=== PATIENT | male | born 1985 | race Native Hawaiian/Other Pacific Islander ===

== ENCOUNTER 2017-04-04 01:41 | Emergency (ER) | payer SELFPAY ==
[2017-04-04 02:26] LABS: Basophils % (Auto) 0.7 % (0.0-1.8); Eosinophils % (Auto) 13.7 % (0.0-4.3); Hematocrit 45.3 % (35.5-45.6); Hemoglobin 15.5 gm/dl (11.8-15.2); Mean Corpuscular HGB Conc 34 % (32-34); Mean Corpuscular Hemoglobin 30 pg (28-32); Mean Corpuscular Volume 86 fl (84-94); Platelet Count 233 K/mm3 (140-440); Red Blood Count 5.25 M/mm3 (3.65-5.03); Red Cell Distribution Width 13.4 % (13.2-15.2); White Blood Count 10.1 K/mm3 (4.5-11.0)
[2017-04-04 02:36] LABS: Alanine Aminotransferase 25 units/L (7-56); Albumin 4.4 g/dL (3.9-5); Albumin/Globulin Ratio 1.6 %; Alkaline Phosphatase 85 units/L (35-129); Anion Gap 21 mmol/L; Blood Urea Nitrogen 16 mg/dL (9-20); Carbon Dioxide 20 mmol/L (22-30); Chloride 100.4 mmol/L (98-107); Glucose 127 mg/dL (75-100); Lipase 32 units/L (13-60); Potassium 3.6 mmol/L (3.6-5.0); Sodium 138 mmol/L (137-145); Total Protein 7.1 g/dL (6.3-8.2)
[2017-04-04 03:50] LABS: Bilirubin,Urine NEG (Negative); Blood,Urine NEG (Negative); Ketones,Urine NEG (Negative); Leukocyte Esterase,Urine NEG (Negative); Mucus,Urine FEW /HPF; Nitrite,Urine NEG (Negative); Protein,Urine <15 mg/dL mg/dL (Negative); Urobilinogen,Urine < 2.0 mg/dL (<2.0)
[2017-04-04] MEDS ORDERED: DELTASONE PO ONE (08:42)
[2017-04-04] MEDS ORDERED: ATROVENT IH ONE ×2 (08:42→09:33)
[2017-04-04] MEDS ORDERED: PROVENTIL IH ONE ×2 (08:42→09:33)
--- NOTE | 2017-04-04 08:51 | Emergency Department Report ---
HPI - General Chief Complaint: Upper Respiratory Infection Time Seen by Provider: 04/04/17 08:25 - HPI HPI: This is a 31-year-old male presents the emergency department with a one -month history of a mixed dry and productive cough. The patient has been trying Robitussin and Mucinex without any relief. Started today he had some shortness of breath with some nausea and vomiting. He has some chest wall discomfort when he coughs. There is been some recent chills but no fever as he has not checked his temperature. He does not have a primary care doctor. No past medical history. He is an occasional tobacco smoker. No recent travel or sick contacts at home. ED Past Medical Hx - Past Medical History Previous Medical History?: No - Surgical History Past Surgical History?: No - Social History Smoking Status: Never Smoker Substance Use Type: Alcohol - Medications Home Medications: Home Medications Medication Instructions Recorded Confirmed Last Taken Type ALBUTEROL Inhaler [ProAir HFA 2 puff IH QID PRN #1 inhalation 04/04/17 Unknown Rx Inhaler] guaiFENesin/CODEINE [Robitussin AC] 5 ml PO Q6H PRN #100 ml 04/04/17 Unknown Rx predniSONE [Deltasone] 20 mg PO QDAY #5 tab 04/04/17 Unknown Rx ED Review of Systems ROS: Stated complaint: COUGH Other details as noted in HPI Comment: All other systems reviewed and negative Constitutional: chills. denies: fever Eyes: denies: eye pain, eye discharge, vision change ENT: denies: ear pain, throat pain Respiratory: cough, shortness of breath Cardiovascular: denies: palpitations, edema Gastrointestinal: nausea, vomiting. denies: abdominal pain Genitourinary: denies: urgency, dysuria Musculoskeletal: denies: back pain, joint swelling, arthralgia Skin: denies: rash, lesions Neurological: denies: weakness, numbness Physical Exam - Physical Exam Vital Signs: Vital Signs 04/04/17 01:50 Temperature 97.8 F Pulse Rate 85 Respiratory 20 Rate Blood Pressure 119/74 [Right] O2 Sat by Pulse 100 Oximetry Physical Exam: GENERAL: The patient is well-developed well-nourished. HEENT: Normocephalic. Atraumatic. Extraocular motions are intact. Patient has moist mucous membranes. Pupils equal reactive to light bilaterally. NECK: Supple. Trach is midline. CHEST/LUNGS: There is some mild wheezing throughout the chest. There is a dry cough that occurs with coughing fits. No tachypnea or accessory muscle use. There is no respiratory distress noted. HEART/CARDIOVASCULAR: Regular. There is no tachycardia. There is no gallop rub or murmur. ABDOMEN: Abdomen is soft, nontender. Patient has normal bowel sounds. There is no abdominal distention. SKIN: Skin is warm and dry. NEURO: The patient is awake, alert, and oriented. The patient is cooperative. The patient has no focal neurologic deficits. The patient has normal speech. MUSCULOSKELETAL: There is no tenderness or deformity. There is no limitation range of motion. There is no evidence of acute injury. ED Course Vital Signs 04/04/17 01:50 Temperature 97.8 F Pulse Rate 85 Respiratory 20 Rate Blood Pressure 119/74 [Right] O2 Sat by Pulse 100 Oximetry ED Medical Decision Making - Lab Data Result diagrams: 04/04/17 02:00 04/04/17 02:03 - EKG Data -: EKG Interpreted by Me EKG shows normal: sinus rhythm, axis, intervals, QRS complexes, ST-T waves Rate: normal - EKG Data When compared to previous EKG there are: previous EKG unavailable Interpretation: normal EKG - Radiology Data Radiology results: image reviewed interpreted by me: Chest x-ray does not show any obvious pneumonia, pleural effusions, pneumothorax or any acute process. - Medical Decision Making 31-year-old male presents to the emergency department with a one-month history of a cough and some more recent shortness of breath and some nausea. Patient's vital signs of in stable throughout his ED course including being afebrile. A chest x-ray was done that did not show any pneumonia, pleural effusions, pneumothorax, or any acute process. His labs of an unremarkable including no leukocytosis, electrolyte abnormalities, renal insufficiency and the patient had a negative troponin and negative d-dimer. EKG does not show any signs of ST elevation [place] or dysrhythmia. He had some mild bronchospasm and wheezing as well as a dry cough with coughing fits heard during examination. He was given Robitussin-AC, steroids and breathing treatments. Upon reevaluation he is feeling improved. He appears safe for discharge home at this time. He'll be given a five-day course of steroids, albuterol inhaler and a prescription for Robitussin-AC. He understands the sedating effects of the Robitussin-AC and when it is appropriate to take his medication. He was given referrals for primary care. He will return to the ER with any worsening of symptoms or any acute distress. - Differential Diagnosis bronchitis, pneumonia, asthma, PE Critical Care Time: No Critical care attestation.: If time is entered above; I have spent that time in minutes in the direct care of this critically ill patient, excluding procedure time. ED Disposition Clinical Impression: Bronchitis, Cough, Bronchospasm Disposition: DISCHARGED TO HOME OR SELFCARE Is pt being admited?: No Condition: Stable Instructions: Acute Bronchitis (ED), Bronchospasm (ED) Additional Instructions: Please follow-up with a primary care doctor in the next few days without fail. Return to the emergency department with any worsening of your symptoms or any acute distress. Please quit any or all smoking. You've been prescribed a medication that is sedating. Therefore this medication cannot be mixed with alcohol, or taken prior to driving, working, or being responsible for children. Prescriptions: ALBUTEROL Inhaler [ProAir HFA Inhaler] 2 puff IH QID PRN #1 inhalation PRN Reason: Shortness Of Breath guaiFENesin/CODEINE [Robitussin AC] 5 ml PO Q6H PRN #100 ml PRN Reason: Cough predniSONE [Deltasone] 20 mg PO QDAY #5 tab Referrals: PRIMARY CARE, [Primary Care Provider] - 3-5 Days CHRISSY QUACH MD, PHD [Staff Physician] - 3-5 Days [facility] [Outside] - 3-5 Days Time of Disposition: 11:42 Print Language: ALBANIAN
[2017-04-04] MEDS ORDERED: DELTASONE ONE (09:13)
[2017-04-04] MEDS ORDERED: ROBITUSSIN AC PO ONE (10:00)
--- NOTE | 2017-04-04 10:00 | XRay Report ---
CHEST 2 VIEWS INDICATION: Shortness of breath. COMPARISON: None similar at this institution. FINDINGS: Frontal and lateral chest radiographs demonstrate limited inspiration with slight exaggerated cardiomediastinal silhouette and somewhat crowded lung markings centrally. No focal consolidation, pleural effusions or CHF. Slight peribronchial thickening/possible bronchitis. Intact bones. CONCLUSION: Slight peribronchial thickening, as described. Please correlate. Thank you for the opportunity to participate in this patient's care.
[2017-04-04 10:56] VITALS: BP 101/60
== END 2017-04-04 12:12 | disposition home or self-care (01) ==
LOC: ED 01:41
DX: J40 Bronchitis, not specified as acute or chronic (principal)
CPT/HCPCS: 36415; 71020; 80053; 81001; 83690; 84484; 85025; 85379; 87116; 87400; 87430; 93005; 93010; 94640; 99284; J7512